=== PATIENT | female | born 1970 | race Caucasian/White ===

== ENCOUNTER → 2016-07-22 | Outpatient (CLI) | payer MEDICAID ==
--- NOTE | 2016-07-22 09:18 | MM ---
Reason for exam: additional evaluation requested from prior study. Last mammogram was performed 1 year and 6 months ago. History: Family history of breast cancer in mother at age 40 and breast cancer in grandmother. Benign US breast aspiration single RT of the right breast, December 11, 2013. Benign right breast aspiration of the right breast, April 19, 2013. Benign left US cyst aspiration of the left breast, July 02, 2008. Benign excisional biopsy of the left breast, May 2007. Took estrogen for 6 months. Physical Findings: Nurse did not find any significant physical abnormalities on exam. MG Diagnostic Mammo w CAD ANIBAL Bilateral CC and MLO view(s) were taken. Prior study comparison: February 04, 2015, right breast MG 3d work up w/cad RT. January 24, 2015, bilateral MG screening mammo w CAD. The breast tissue is heterogeneously dense. This may lower the sensitivity of mammography. No significant new findings when compared with previous films. These results were verbally communicated with the patient and result sheet given to the patient on 07/22/16. ASSESSMENT: Incomplete: need additional imaging evaluation, BI-RAD 0 RECOMMENDATION: Ultrasound of the right breast.
--- NOTE | 2016-07-22 09:37 | USB ---
Reason for exam: additional evaluation requested from abnormal screening. History: Family history of breast cancer in mother at age 40 and breast cancer in grandmother. Benign US breast aspiration single RT of the right breast, December 11, 2013. Benign right breast aspiration of the right breast, April 19, 2013. Benign left US cyst aspiration of the left breast, July 02, 2008. Benign excisional biopsy of the left breast, May 2007. Took estrogen for 6 months. US Breast RT Right breast ultrasound includes all four quadrants, the retroareolar region and axilla. Finding demonstrates a 1.1 x 1.0 x 0.9cm oval, mixed, hypoechoic lesion at 12 o'clock, a 1.1 x 0.9 x 0.5cm oval, mixed, hypoechoic lesion at 1 o'clock, a 0.5 x 0.6 x 0.2cm oval, hypoechoic lesion at 2 o'clock, a 0.5 x 0.4 x 0.3cm oval, cystic lesion at 7 o'clock, a 0.4 x 0.5 x 0.2cm oval, hypoechoic lesion at 8 o'clock, a 0.3 x 0.3 x 0.2cm oval lesion too small to characterize at 9 o'clock, a 0.3 x 0.4 x 0.3cm oval, hypoechoic lesion at 9 o'clock, a 0.7 x 0.6 x 0.5cm oval, mixed lesion at 10 o'clock, a 0.7 x 0.8 x 0.4cm oval, hypoechoic lesion at 10 o'clock, a 0.9 x 1.1 x 0.9cm irregular, hypoechoic lesion at 10 o'clock and a 1.0 x 0.8 x 0.4cm oval, hypoechoic lesion at 11 o'clock. These results were verbally communicated with the patient and result sheet given to the patient on 07/22/16. ASSESSMENT: Probably benign, BI-RAD 3 RECOMMENDATION: Ultrasound of the right breast in 6 months.
== END | disposition home or self-care (01) ==
LOC: RADMAMWWP 07:19
PROVIDERS: ATTEND Family Medicine
DX: R92.8 Other abnormal and inconclusive findings on diagnostic imaging of breast (principal)
CPT/HCPCS: 76641; G0204

== ENCOUNTER → 2018-12-11 | Outpatient (CLI) | payer MEDICAID ==
--- NOTE | 2018-12-11 12:07 | MR ---
EXAMINATION TYPE: MR cervical spine wo con DATE OF EXAM: 12/11/2018 7:50 AM COMPARISON: NONE HISTORY: Cervical disc degeneration, pain, tingling down both arms Multiplanar MultiSpin echo imaging of the cervical spine was performed. Comparison: none C2-C3: No evidence for degenerative disc disease. No disc bulge/herniation or protrusion. No Canal stenosis. Foramina are patent bilaterally. C3-C4: No evidence for degenerative disc disease. No disc bulge/herniation or protrusion. No Canal stenosis. Foramina are patent bilaterally. C4-C5: Mild disc desiccation. Circumferential disc bulge with mild effacement ventral thecal sac. No evidence for disc herniation or central stenosis. Mild bilateral neural foraminal encroachment. C5-C6: Moderate disc desiccation. Left paracentral disc bulge with mild effacement ventral thecal sac . No central stenosis. Mild bilateral foraminal encroachment. C6-C7: Mild disc desiccation. Circumferential disc bulge with mild effacement ventral thecal sac. No evidence for disc herniation or central stenosis. Mild bilateral neural foraminal encroachment. C7-T1: No evidence for degenerative disc disease. No disc bulge/herniation or protrusion. No Canal stenosis. Foramina are patent bilaterally. Cervical segments are intact. There is normal alignment. Cervical spinal cord is of normal signal. Craniovertebral junction relationships are within normal limits. IMPRESSION: 1. Disc desiccation with disc bulging as noted. Bilateral foraminal encroachment.
== END ==
LOC: RADMRIMAIN 07:10
PROVIDERS: ATTEND Family Medicine
DX: M50.221 Other cervical disc displacement at C4-C5 level (principal)
CPT/HCPCS: 72141

== ENCOUNTER → 2019-12-12 | Outpatient (CLI) | payer MEDICAID ==
[2019-12-12 11:54] LABS: Basophils % (A) 1 %; Eosinophils # (A) 0.1 k/uL (0-0.7); Eosinophils % (A) 2 %; HCT 40.4 % (34.0-46.0); HGB 12.9 gm/dL (11.4-16.0); Lymphocytes # (A) 0.6 k/uL (1.0-4.8); Lymphocytes % (A) 18 %; MCH 27.5 pg (25.0-35.0); MCV 85.7 fL (80.0-100.0); Mean Platelet Volume 6.8; Monocytes # (A) 0.3 k/uL (0-1.0); Monocytes % (A) 8 %; Neutrophils # (A) 2.2 k/uL (1.3-7.7); Neutrophils % (A) 70 %; Platelet Count 237 k/uL (150-450); RBC 4.71 m/uL (3.80-5.40); RDW 13.4 % (11.5-15.5); WBC 3.2 k/uL (3.8-10.6)
[2019-12-12 12:06] LABS: Appearance,Urine Cloudy (Clear); Bacteria,Urine Rare /hpf; Bilirubin,Urine Negative (Negative); Blood,Urine Negative (Negative); Color,Urine Yellow; Glucose,Urine (UA) Negative (Negative); Ketones,Urine Negative (Negative); Leukocyte Esterase,Urine Small (Negative); Mucus,Urine Rare /hpf; Nitrite,Urine Negative (Negative); Protein,Urine Trace (Negative); RBC,Urine 1 /hpf (0-5); Specific Gravity,Urine 1.024 (1.001-1.035); Squamous Epithelial Cell,Urine 12 /hpf (0-4); Urobilinogen,Urine <2.0 mg/dL (<2.0); WBC,Urine 1 /hpf (0-5)
[2019-12-12 21:15] LABS: Anti-Smith Ab Interp NEGATIVE (NEGATIVE); Cardiolipin Ab IgG Interp NEGATIVE (NEGATIVE); Cardiolipin Ab IgM Interp NEGATIVE (NEGATIVE); Cardiolipin IgA Antibody 1.1 U/mL; Cardiolipin IgM Antibody 2.7 U/mL; Cyclic Citrull Pep IgG Unit 7.4 U/mL; Cyclic Citrullinated Pep IgG POSITIVE (NEGATIVE); DNA Double-Stranded NEGATIVE (NEGATIVE); Scleroderma SC-70 Ab <0.2 AI
[2019-12-12 22:31] LABS: Protein, Total 6.8 g/dL (6.2-8.2)
[2019-12-12 23:19] LABS: Erythrocyte Sedimentation Rate 17 mm/Hr (0-20)
[2019-12-13 00:59] LABS: Hepatitis B Surface Antigen Non-Reactive (Non-Reactive); Hepatitis C IgG Antibody Non-Reactive (Non-Reactive)
[2019-12-13 07:06] LABS: ALT 15 U/L (8-44); AST 21 U/L (13-35); Albumin/Globulin Ratio 1.96 (1.60-3.17); Alkaline Phosphatase 82 U/L (41-126); BUN/Creat Ratio 15.56 Ratio (12.00-20.00); C Reactive Protein <0.4 mg/dL (0.0-0.8); Calcium 9.6 mg/dL (8.7-10.3); Carbon Dioxide 25.7 mmol/L (21.6-31.8); Chloride 106 mmol/L (96-109); Creatine Kinase 89 U/L (26-186); Globulin 2.3 g/dL (1.6-3.3); Glucose 80 mg/dL (70-110); Non-African American GFR(CKD) 75.1 (60.0-200.0); Potassium 4.6 mmol/L (3.5-5.5); Rheumatoid Factor, Qnt 9 IU/mL (0-15); Sodium 142 mmol/L (135-145); Total Bilirubin 0.3 mg/dL (0.3-1.2); Total Protein 6.8 g/dL (6.2-8.2); Uric Acid 4.7 mg/dL (2.9-7.7)
[2019-12-13 08:41] LABS: Angiotensin-1 Converting Enz. 10 U/L (8-52)
[2019-12-13 09:18] LABS: Free Kappa Lt Chain Qnt, Serum 1.56 mg/dL (0.33-1.94)
[2019-12-13 12:25] LABS: HLA B27 NEGATIVE
[2019-12-13 13:46] LABS: Vitamin D, 1, 25-Dihydroxy 41 pg/mL (20 - 79)
[2019-12-13 13:59] LABS: APTT 43 Sec(s) (<43); DRVVT 1:1 Mix 39 Sec(s) (<44); Dilute Russell Viper Venom 46 Sec(s) (<44)
[2019-12-13 14:09] LABS: C-ANCA <1:20 Titer (<1:20)
[2019-12-13 14:19] LABS: Albumin 4.15 g/dL (3.80-4.90); Gamma Globulin 1.17 g/dL (0.70-1.50)
[2019-12-14 11:26] LABS: ANA Pattern Speckled; ANA Pattern 2 Nucleolar
== END | disposition home or self-care (01) ==
LOC: LABWHC1 10:45
PROVIDERS: ATTEND Internal Medicine Rheumatology
DX: M35.00 Sjogren syndrome, unspecified (principal)
CPT/HCPCS: 36415; 80053; 81001; 82085; 82164; 82306; 82550; 82652; 83516; 83883; 84165; 84439; 84443; 84550; 85025; 85613; 85652; 85730; 86038; 86039; 86140; 86147; 86160; 86162; 86200; 86225; 86235; 86255; 86334; 86431; 86803; 86812; 87340

== ENCOUNTER → 2020-01-28 | Outpatient (CLI) | payer MEDICAID | END | disposition home or self-care (01) | LOC: LABWHC1 12:07 | PROVIDERS: ATTEND Nurse Practitioner Family | DX: Z20.828 Contact with and (suspected) exposure to other viral communicable diseases (principal) | CPT/HCPCS: U0003; C9803 ==

== ENCOUNTER → 2020-07-30 | Outpatient (CLI) | payer MEDICAID ==
--- NOTE | 2020-07-30 19:27 | XR ---
Result: Clinical History: Pain and swelling. Comparison: None available. Technique: AP, lateral and oblique views of the right ankle. AP, lateral and oblique views of the right foot. Findings: The bone mineralization is age-appropriate. Right ankle: There is no acute fracture or dislocation. The visualized osseous structures are in shawn tomic alignment. Scattered minimal degenerative changes with small dorsal talar osteophyte and plant ar spur seen. The talar dome is intact and the ankle mortise is congruent. Right foot: There is no acute fracture or dislocation. The visualized osseous structures are in dayanna omic alignment. The joint spaces are preserved. IMPRESSION: No acute osseous abnormality of the right ankle or foot.
== END | disposition home or self-care (01) ==
LOC: RADXRMAIN 18:35
PROVIDERS: ATTEND Family Medicine
DX: M25.571 Pain in right ankle and joints of right foot (principal); M79.671 Pain in right foot; M25.471 Effusion, right ankle; M79.89 Other specified soft tissue disorders

== ENCOUNTER → 2022-07-06 | Outpatient (CLI) | payer MEDICAID ==
--- NOTE | 2022-07-07 07:32 | MM ---
Reason for Exam: Screening (asymptomatic). Last mammogram was performed 5 year(s) and 11 month(s) ago. Patient History: Menarche at age 10. First Full-Term at age 16. Left ovary removed at age 25. Right ovary removed at age 25. Hysterectomy at age 25. Postmenopausal. Estrogen for 6 months. 05/2007, Benign Excisional Biopsy on the left side. 12/11/2013, Benign Cyst Aspiration on the right side. 04/19/2013, Benign Cyst Aspiration on the right side. 07/02/2008, Benign Cyst Aspiration on the left side. Maternal grandmother had breast cancer. Mother had breast cancer, age 40. Risk Values: Alexandra 5 year model risk: 2.5%. NCI Lifetime model risk: 19.6%. Prior Study Comparison: 06/19/2014 Right Diagnostic Mammogram, [facility]. 01/24/2015 Bilateral Screening Mammogram, [facility]. 02/04/2015 Right Diagnostic Mammogram, [facility]. 07/22/2016 Bilateral Diagnostic Mammogram, [facility]. Tissue Density: The breast tissue is heterogeneously dense. This may lower the sensitivity of mammography. Findings: Analyzed By CAD. Right breast biopsy clips. There is no suspicious group of microcalcifications or new suspicious mass in either breast. Overall Assessment: Negative, BI-RAD 1 Management: Screening Mammogram of both breasts in 1 year. A clinical breast exam by your physician is recommended on an annual basis and results should be correlated with mammographic findings. [facility] will attempt to contact patient to return for supplemental views and ultrasound if indicated. Electronically signed and approved by: Jani Lux DO
== END | disposition home or self-care (01) ==
LOC: RADMAMWWP 06:51
PROVIDERS: ATTEND Family Medicine
DX: Z12.31 Encounter for screening mammogram for malignant neoplasm of breast (principal); Z80.3 Family history of malignant neoplasm of breast; Z78.0 Asymptomatic menopausal state; Z98.890 Other specified postprocedural states
CPT/HCPCS: 77067

== ENCOUNTER 2022-08-20 11:51 | Emergency (ER) | payer MEDICAID ==
--- NOTE | 2022-08-20 12:40 | ED ---
General Adult HPI - General Chief complaint: Fall Stated complaint: Left wrist injury Time Seen by Provider: 08/20/22 12:07 Source: patient Mode of arrival: ambulatory Limitations: no limitations - History of Present Illness Initial comments: Dictation was produced using [employer] dictation software. please excuse any grammatical, word or spelling errors. Chief Complaint: 51-year-old female presents with left wrist injury History of Present Illness: Is a 51-year-old female she fell on outstretched hand. States that her wrist flexed backwards were her fingers touch to her posterior forearm. Patient widening of left wrist pain. Since that pain is severe. Denies any numbness or paresthesias to the fingers. The ROS documented in this emergency department record has been reviewed and confirmed by me. Those systems with pertinent positive or negative responses have been documented in the HPI. All other systems are other negative and/or noncontributory. - Related Data Home Medications Medication Instructions Recorded Confirmed Hydroxychloroquine Sulfate 200 mg PO BID 08/20/22 08/20/22 Pilocarpine [Salagen] 5 mg PO DAILY 08/20/22 08/20/22 valACYclovir HCL [Valtrex] 500 mg PO DAILY 08/20/22 08/20/22 Allergies Allergy/AdvReac Type Severity Reaction Status Date / Time codeine Allergy Severe Rapid Verified 08/20/22 14:15 Heart Rate Review of Systems ROS Statement: Those systems with pertinent positive or pertinent negative responses have been documented in the HPI. ROS Other: All systems not noted in ROS Statement are negative. Past Medical History Past Medical History: No Reported History History of Any Multi-Drug Resistant Organisms: None Reported Past Surgical History: Appendectomy, Breast Surgery, Hysterectomy Additional Past Surgical History / Comment(s): bilateral breast fibrotic cysts. Past Psychological History: No Psychological Hx Reported Smoking Status: Never smoker Past Alcohol Use History: None Reported Past Drug Use History: None Reported General Exam - General Exam Comments Initial Comments: PHYSICAL EXAM: General Impression: Alert and oriented x3, not in acute distress HEENT: Normocephalic atraumatic, extra-ocular movements intact, pupils equal and reactive to light bilaterally, mucous membranes moist. Cardiovascular: Heart regular rate and rhythm Chest: Able to complete full sentences, no retractions, no tachypnea Musculoskeletal: Pulses present and equal in all extremities, no peripheral edema Motor: no focal deficits noted Neurological: CN II-XII grossly intact, no focal motor or sensory deficits noted Skin: Intact with no visualized rashes Psych: Normal affect and mood Left upper extremity: Palpatory tenderness over the entire wrist, there does appear to be a step-off over the dorsal radius, not grossly angulated Limitations: no limitations Course Vital Signs 08/20/22 08/20/22 08/20/22 12:04 13:38 13:43 Temperature 98.2 F Pulse Rate 77 97 100 Respiratory 20 18 16 Rate Blood Pressure 119/78 128/98 154/88 O2 Sat by Pulse 99 98 100 Oximetry 08/20/22 08/20/22 13:48 14:03 Temperature Pulse Rate 102 H 96 Respiratory 20 20 Rate Blood Pressure 155/85 138/92 O2 Sat by Pulse 100 100 Oximetry Procedures - Orthopedic Fracture Reduction Fracture #1 Consent Obtained: verbal consent, written consent Side: left Fracture Reduction Location: radius Analgesia: procedural sedation Technique: direct manipulation Post Reduction X-rays Demonstrate: anatomical reduction Post-Reduction Neuro Exam: intact Post-Reduction Vascular Exam: intact Splint Applied: Yes Patient Tolerated Procedure: well - Procedural Sedation *Procedural Sedation Start Time: 13:38 *Procedural Sedation Stop Time: 13:46 *Indications: fracture/dislocation reduction *Previous Adverse Reaction to Anesthesia/Sedation?: No * Testing Complete?: No Reason Test Not Complete:: Emergent Situation *ASA Class: II *Mallampati Airway Score: 2 *Time of Last PO Intake: 08:00 Preparation: air sampling and monitoring applied, pulse oximeter, capnometry used, supplemental O2 applied Ketamine: IV Ketamine Dose: 50 Complications: none Interventions: oxygen applied Patient Tolerated Procedure: well Medical Decision Making - Medical Decision Making Was pt. sent in by a medical professional or institution (Dr. PA, [employer], urgent care, hospital, or fpc...) When possible be specific @ -No Did you speak to anyone other than the patient for history (EMS, parent, family, police, friend...)? What history was obtained from this source @ -No Did you review nursing and triage notes (agree or disagree)? Why? @ -I reviewed and agree with nursing and triage notes Were old charts reviewed (outside hosp., previous admission, EMS record, old EKG, old radiological studies, urgent care reports/EKG's, fpc records)? Report findings @ -No old charts were reviewed Differential Diagnosis (chest pain, altered mental status, abdominal pain women, abdominal pain men, vaginal bleeding, musculoskeletal, weakness, fever, dyspnea, syncope, headache, dizziness, GI bleed, back pain, seizure, CVA, palp atations, mental health)? @ -not applicable EKG interpreted by me (3pts min.). @ -None done X-rays interpreted by me (1pt min.). @ -Left distal radius fracture CT interpreted by me (1pt min.). @ -None done U/S interpreted by me (1pt. min.). @ -None done What testing was considered but not performed or refused? (CT, X-rays, U/S, labs)? Why? @ -None What meds were considered but not given or refused? Why? @ -None Did you discuss the management of the patient with other professionals (professionals i.e. , PA, [employer], lab, RT, psych nurse, medical social consultant, flying ii instructor, teacher, court registry officer, hospice case manager)? Give summary @ -No Was smoking cessation discussed for >3mins.? @ -No Was critical care preformed (if so, how long)? @ -No Were there social determinants of health that impacted care today? How? (Homelessness, low income, unemployed, alcoholism, drug addiction, transportation, low edu. Level, literacy, decrease access to med. care, detention, rehab)? @ -No Was there de-escalation of care discussed even if they declined (Discuss DNR or withdrawal of care, Hospice)? DNR status @ -No What co-morbidities impacted this encounter? (DM, HTN, Smoking, COPD, CAD, Cancer, CVA, ARF, Chemo, Hep., AIDS, mental health diagnosis, sleep apnea, morbid obesity)? @ -None Was patient admitted / discharged? Hospital course, mention meds given and route, prescriptions, significant lab abnormalities, going to OR and other pertinent info. @ -51-year-old female presents with left wrist fracture. Patient had received sedation for fracture reduction. Postreduction x-ray shows near anatomical reduction. Patient observed in emergency department after sedation. Patient discharged with outpatient referral to hand specialist Undiagnosed new problem with uncertain prognosis? @ -No Drug Therapy requiring intensive monitoring for toxicity (Heparin, Nitro, Insulin, Cardizem)? @ -No Were any procedures done? @ -See procedure note Diagnosis/symptom? Acute, or Chronic, or Acute on Chronic? Uncomplicated (without systemic symptoms) or Complicated (systemic symptoms)? @ -1. Left distal radius fracture Side effects of treatment? @ -No Exacerbation, Progression, or Severe Exacerbation? @ -No Poses a threat to life or bodily function? How? (Chest pain, USA, DC, pneumonia, PE, COPD, DKA, ARF, appy, cholecystitis, CVA, Diverticulitis, Homicidal, Suicidal, threat to staff... and all critical care pts) @ -yes Disposition Clinical Impression: Wrist fracture Disposition: HOME SELF-CARE Instructions (If sedation given, give patient instructions): Moderate Sedation (ED), Wrist Fracture in Adults (ED) Is patient prescribed a controlled substance at d/c from ED?: No Referrals: Eric Arellano DO [Doctor of Osteopathic Medicine] - 1-2 days Edda Stout DO [Doctor of Osteopathic Medicine] - 1-2 days Time of Disposition: 14:27
--- NOTE | 2022-08-20 12:43 | XR ---
Left wrist. HISTORY: Pain following trauma COMPARISON: None. TECHNIQUE: 4 views left wrist are obtained. There is a displaced apex volar angulation of the fracture of the distal left radial metaphysis. Left ulna is intact. The carpal bones and articulations are normal. There are no dislocations. IMPRESSION: Fracture of the left wrist as described above.
[2022-08-20] MEDS ORDERED: KETAMINE HCL IN 0.9 % NACL 50 MG/5 ML SYRINGE IV ONE (12:52)
--- NOTE | 2022-08-20 14:04 | XR ---
Left wrist: HISTORY: Reduction of left wrist fracture. COMPARISON: 08/20/2022. TECHNIQUE: 2 views left wrist are obtained post reduction. There appears to be near anatomic alignment. IMPRESSION: Near-anatomic alignment post reduction for left distal radial fracture.
[2022-08-20 14:19] VITALS: RESP 18
[2022-08-20 15:15] VITALS: BP 128/74; PULSE 92; TEMP 98.5
== END 2022-08-20 15:08 | disposition home or self-care (01) ==
LOC: EC 11:51
DX: S52.502A Unspecified fracture of the lower end of left radius, initial encounter for closed fracture (principal); Z88.5 Allergy status to narcotic agent; W19.XXXA Unspecified fall, initial encounter
CPT/HCPCS: 25605; 96374; 99283

== ENCOUNTER 2022-08-21 09:43 | Emergency (ER) | payer MEDICAID ==
[2022-08-21] MEDS ORDERED: ACETAMINOPHEN TAB 500 MG TAB PO STA (10:36)
[2022-08-21] MEDS ORDERED: KETOROLAC 15 MG/ML 1 ML VIAL IM STA (10:36)
--- NOTE | 2022-08-21 10:47 | ED ---
General Adult HPI - General Chief complaint: Extremity Injury, Upper Stated complaint: Broken wrist Time Seen by Provider: 08/21/22 10:20 Source: patient, RN notes reviewed, old records reviewed Mode of arrival: ambulatory Limitations: no limitations - History of Present Illness Initial comments: This is a 51-year-old female presents emergency Department complaining that the cast was placed yesterday was pushing on her biceps and causing the circulation be cut off. Patient comes in to have it redone. Patient has no other symptoms at this time. - Related Data Home Medications Medication Instructions Recorded Confirmed Hydroxychloroquine Sulfate 200 mg PO BID 08/20/22 08/20/22 Pilocarpine [Salagen] 5 mg PO DAILY 08/20/22 08/20/22 valACYclovir HCL [Valtrex] 500 mg PO DAILY 08/20/22 08/20/22 Allergies Allergy/AdvReac Type Severity Reaction Status Date / Time codeine Allergy Severe Rapid Verified 08/21/22 10:11 Heart Rate Review of Systems ROS Statement: Those systems with pertinent positive or pertinent negative responses have been documented in the HPI. ROS Other: All systems not noted in ROS Statement are negative. Past Medical History Past Medical History: No Reported History History of Any Multi-Drug Resistant Organisms: None Reported Past Surgical History: Appendectomy, Breast Surgery, Hysterectomy Additional Past Surgical History / Comment(s): bilateral breast fibrotic cysts. Past Psychological History: No Psychological Hx Reported Smoking Status: Never smoker Past Alcohol Use History: None Reported Past Drug Use History: None Reported General Exam - General Exam Comments Initial Comments: GENERAL Patient is well-developed and well-nourished. Patient is in mild distress. EYES Patient's pupils are equal and round. Extraocular motion is intact SKIN Unremarkable NEURO The patient is alert and oriented 3 PYSCH Patient has normal interpersonal interactions. MUSCULOSKELETAL The proximal portion of the cast was pushing her bicep causing her quite a bit of discomfort. Limitations: no limitations Course Vital Signs 08/21/22 10:08 Temperature 97.9 F Pulse Rate 98 Respiratory 0 L Rate Blood Pressure 134/83 O2 Sat by Pulse 95 Oximetry Procedures - Orthopedic Splinting/Casting Injury #1 Side: left Upper Extremity Injury Location: long arm, wrist Upper Extremity Immobilizer: sugar tong splint Medical Decision Making - Medical Decision Making Was pt. sent in by a medical professional or institution (, PA, CASH MANAGER, urgent care, hospital, or longterm...) When possible be specific @ -No Did you speak to anyone other than the patient for history (EMS, parent, family, police, friend...)? What history was obtained from this source @ -No Did you review nursing and triage notes (agree or disagree)? Why? @ -I reviewed and agree with nursing and triage notes Were old charts reviewed (outside hosp., previous admission, EMS record, old EKG, old radiological studies, urgent care reports/EKG's, longterm records)? Report findings @ -I reviewed x-rays and charts from yesterday Differential Diagnosis (chest pain, altered mental status, abdominal pain women, abdominal pain men, vaginal bleeding, weakness, fever, dyspnea, syncope, headache, dizziness, GI bleed, back pain, seizure, CVA, palpatations, mental health, musculoskeletal)? @ -Differential musculoskeletal EKG interpreted by me (3pts min.). @ -As above X-rays interpreted by me (1pt min.). @ -None done CT interpreted by me (1pt min.). @ -None done U/S interpreted by me (1pt. min.). @ -None done What testing was considered but not performed or refused? (CT, X-rays, U/S, labs)? Why? @ -None What meds were considered but not given or refused? Why? @ -None Did you discuss the management of the patient with other professionals (professionals i.e. , PA, CASH MANAGER, lab, RT, psych nurse, transition social worker, rn social work, teacher, learning and development officer, case managers)? Give summary @ -No Was smoking cessation discussed for >3mins.? @ -No Was critical care preformed (if so, how long)? @ -No Were there social determinants of health that impacted care today? How? (Homelessness, low income, unemployed, alcoholism, drug addiction, transportation, low edu. Level, literacy, decrease access to med. care, halfway, rehab)? @ -No Was there de-escalation of care discussed even if they declined (Discuss DNR or withdrawal of care, Hospice)? DNR status @ -No What co-morbidities impacted this encounter? (DM, HTN, Smoking, COPD, CAD, Cancer, CVA, ARF, Chemo, Hep., AIDS, mental health diagnosis, sleep apnea, morbid obesity)? @ -None Was patient admitted / discharged? Hospital course, mention meds given and route, prescriptions, significant lab abnormalities, going to OR and other pertinent info. @ -Original splint was removed and I replaced with a new splint and it's a sugar tong long arm splint. Undiagnosed new problem with uncertain prognosis? @ -No Drug Therapy requiring intensive monitoring for toxicity (Heparin, Nitro, Insulin, Cardizem)? @ -No Were any procedures done? @ -No Diagnosis/symptom? @ -Cast discomfort Acute, or Chronic, or Acute on Chronic? @ -Acute Uncomplicated (without systemic symptoms) or Complicated (systemic symptoms)? @ -Uncomplicated Side effects of treatment? @ -No Exacerbation, Progression, or Severe Exacerbation? @ -No Poses a threat to life or bodily function? How? (Chest pain, USA, MD, pneumonia, PE, COPD, DKA, ARF, appy, cholecystitis, CVA, Diverticulitis, Homicidal, Suicidal, threat to staff... and all critical care pts) @ -No Disposition Clinical Impression: Cast discomfort, Fx wrist Disposition: HOME SELF-CARE Instructions (If sedation given, give patient instructions): Wrist Fracture in Adults (ED) Is patient prescribed a controlled substance at d/c from ED?: No Referrals: Jeffery Simon DO [Primary Care Provider] - 1-2 days Time of Disposition: 10:44
[2022-08-21 10:57] VITALS: BP 135/86; PULSE 84; RESP 18; TEMP 98.2
== END 2022-08-21 11:01 | disposition home or self-care (01) ==
LOC: EC 09:43
DX: S62.91XA Unspecified fracture of right hand, initial encounter for closed fracture (principal); Z88.5 Allergy status to narcotic agent; X58.XXXA Exposure to other specified factors, initial encounter
CPT/HCPCS: 99283; 96372; 29105; J1885

== ENCOUNTER → 2023-07-13 | Outpatient (CLI) | payer BC ==
--- NOTE | 2023-07-14 08:57 | MM ---
Reason for Exam: Screening (asymptomatic). Last mammogram was performed 1 year(s) and 1 month(s) ago. Patient History: Menarche at age 10. First Full-Term at age 16. Left ovary removed at age 25. Hysterectomy at age 25. Postmenopausal. Estrogen for 6 months. 05/2007, Benign Excisional Biopsy on the left side. 12/11/2013, Benign Cyst Aspiration on the right side. 04/19/2013, Benign Cyst Aspiration on the right side. 07/02/2008, Benign Cyst Aspiration on the left side. Maternal grandmother had breast cancer. Maternal aunt had breast cancer at or over age 50. Mother had breast cancer, age 40. Risk Values: Alexandra 5 year model risk: 2.6%. NCI Lifetime model risk: 19.3%. Prior Study Comparison: 06/19/2014 Right Diagnostic Mammogram, [facility]. 02/04/2015 Right Diagnostic Mammogram, [facility]. 07/22/2016 Bilateral Diagnostic Mammogram, [facility]. 07/06/2022 Bilateral MG screening mammo w CAD, [facility]. Tissue Density: The breasts are heterogeneously dense, which may obscure small masses. Findings: Analyzed By CAD. Benign calcifications. Surgical clip right breast. Nodular area of density in the central lateral margin right breast for which spot compression view recommended. Overall Assessment: Incomplete: need additional imaging evaluation, BI-RAD 0 Management: Diagnostic Mammogram of the right breast. . Patient should continue monthly self-breast exams. A clinical breast exam by your physician is recommended on an annual basis. This exam should not preclude additional follow-up of suspicious palpable abnormalities. Note on Alexandra scores and lifetime risk: 1. A Alexandra score greater than 3% is considered moderate risk. If this is the case, consider specialist referral to assess eligibility for a risk reducing agent. 2. If overall lifetime risk for the development of breast cancer is 20% or higher, the patient may qualify for future screening with alternating mammogram and breast MRI. Electronically signed and approved by: Davy Crespo M.D. Radiologis
== END | disposition home or self-care (01) ==
LOC: RADMAMWWP 07:41
PROVIDERS: ATTEND Family Medicine
DX: Z12.31 Encounter for screening mammogram for malignant neoplasm of breast (principal); Z78.0 Asymptomatic menopausal state; Z80.3 Family history of malignant neoplasm of breast
CPT/HCPCS: 77067

== ENCOUNTER → 2023-07-15 | Outpatient (CLI) | payer BC ==
--- NOTE | 2023-07-15 08:11 | MM ---
Reason for Exam: Additional evaluation requested from abnormal screening. Last screening mammogram was performed less than 1 month ago. Patient History: Menarche at age 10. First Full-Term at age 16. Left ovary removed at age 25. Hysterectomy at age 25. Postmenopausal. Estrogen for 6 months. 05/2007, Benign Excisional Biopsy on the left side. 12/11/2013, Benign Cyst Aspiration on the right side. 04/19/2013, Benign Cyst Aspiration on the right side. 07/02/2008, Benign Cyst Aspiration on the left side. Maternal grandmother had breast cancer. Maternal aunt had breast cancer at or over age 50. Mother had breast cancer, age 40. Risk Values: Alexandra 5 year model risk: 2.6%. NCI Lifetime model risk: 19.3%. Tissue Density: Right: The breasts are heterogeneously dense, which may obscure small masses. Findings: Analyzed By CAD. Focal asymmetry 7 cm from nipple measuring 6 mm at middle depth posterior nipple line on both MLO and CC view. Overall Assessment: Incomplete: need additional imaging evaluation, BI-RAD 0 Management: Diagnostic Breast Ultrasound of the right breast. Results were given to the patient verbally at the time of exam. Patient should continue monthly self-breast exams. A clinical breast exam by your physician is recommended on an annual basis. This exam should not preclude additional follow-up of suspicious palpable abnormalities. Note on Alexandra scores and lifetime risk: 1. A Alexandra score greater than 3% is considered moderate risk. If this is the case, consider specialist referral to assess eligibility for a risk reducing agent. 2. If overall lifetime risk for the development of breast cancer is 20% or higher, the patient may qualify for future screening with alternating mammogram and breast MRI. Electronically signed and approved by: Jani Lux DO
--- NOTE | 2023-07-15 08:52 | USB ---
Reason for Exam: Additional evaluation requested from abnormal screening. Patient History: Menarche at age 10. First Full-Term at age 16. Left ovary removed at age 25. Hysterectomy at age 25. Postmenopausal. Estrogen for 6 months. 05/2007, Benign Excisional Biopsy on the left side. 12/11/2013, Benign Cyst Aspiration on the right side. 04/19/2013, Benign Cyst Aspiration on the right side. 07/02/2008, Benign Cyst Aspiration on the left side. Maternal grandmother had breast cancer. Maternal aunt had breast cancer at or over age 50. Mother had breast cancer, age 40. Risk Values: Alexandra 5 year model risk: 2.6%. NCI Lifetime model risk: 19.3%. Technique: Method: Targeted. Prior Study Comparison: 07/22/2016 Bilateral Diagnostic Mammogram, [facility]. 07/06/2022 Bilateral MG screening mammo w CAD, [facility]. 07/13/2023 Bilateral MG screening mammo w CAD, [facility]. Findings: The upper outer quadrant of the right breast, the axilla of the right breast and the retroareolar of the right breast were scanned. Technique utilized:US breast workup limited RT Image; Ultrasound imaging of: Area of concern, retroareolar region and axilla. * Clustered cystic necrotic 7 cm from nipple measuring up to 5 mm. * Hypoechoic lesion at 9:00 2 cm from nipple measuring up to 5 mm. Biopsy of this lesion is recommended. * Simple appearing cyst at 10:00 3 cm from nipple measuring 5 mm. Overall Assessment: Suspicious, BI-RAD 4 Management: Ultrasound Core Biopsy of the right breast. A clinical breast exam by your physician is recommended on an annual basis and results should be correlated with mammographic findings. This exam should not preclude additional follow-up of suspicious palpable abnormalities. Results were given to the patient verbally at the time of exam. Electronically signed and approved by: Jani Lux DO
== END | disposition home or self-care (01) ==
LOC: RADMAMWWP 07:26
PROVIDERS: ATTEND Family Medicine
DX: N60.01 Solitary cyst of right breast (principal); R92.331 Mammographic heterogeneous density, right breast; Z80.3 Family history of malignant neoplasm of breast; Z78.0 Asymptomatic menopausal state
CPT/HCPCS: 77061; 77065

== ENCOUNTER → 2023-07-20 | Day surgery (SDC) | payer BC ==
--- NOTE | 2023-07-26 09:07 | MM ---
Reason for Exam: Post Procedure Mammogram. Last screening mammogram was performed less than 1 month ago. Patient History: Menarche at age 10. First Full-Term at age 16. Left ovary removed at age 25. Hysterectomy at age 25. Postmenopausal. Estrogen for 6 months. 05/2007, Benign Excisional Biopsy on the left side. 12/11/2013, Benign Cyst Aspiration on the right side. 04/19/2013, Benign Cyst Aspiration on the right side. 07/02/2008, Benign Cyst Aspiration on the left side. Maternal grandmother had breast cancer. Maternal aunt had breast cancer at or over age 50. Mother had breast cancer, age 40. Risk Values: Alexandra 5 year model risk: 2.6%. NCI Lifetime model risk: 19.3%. Prior Study Comparison: 06/19/2014 Right Diagnostic Mammogram, [facility]. 01/24/2015 Bilateral Screening Mammogram, [facility]. 02/04/2015 Right Diagnostic Mammogram, [facility]. 07/22/2016 Bilateral Diagnostic Mammogram, [facility]. 07/06/2022 Bilateral MG screening mammo w CAD, [facility]. 07/13/2023 Bilateral MG screening mammo w CAD, [facility]. 07/15/2023 Right MG 3D work up w/cad RT, [facility]. Tissue Density: Right: The breasts are heterogeneously dense, which may obscure small masses. Pathology Description: Location: 9 o'clock. Marker Left Behind. Needle Type: Mammotome Cores: 4 Gauge: 13 The procedure of ultrasound guided core biopsy was explained to the patient. Benefits, alternatives, and risks were discussed. An informed consent was then obtained. The small 6 mm lesion at the 9:00 position, 2 cm from the nipple is identified and targeted for biopsy. The patient was placed in supine positioning for imaging and for the procedure. The overlying skin was prepped and draped in usual sterile fashion. Lidocaine was used as anesthetic into the skin and subcutaneous tissue up to area of concern in the right breast. Under ultrasound guidance, a 13-gauge vacuum-assisted mammotome Elite biopsy gun device was used to obtain 4 core samples. The area appeared to collapse at the first pass suggesting a possible tiny debris filled cyst. Following this, a coil clip was left in lesion. The patient tolerated the procedure well without any immediate complication. The patient was kept in the radiology department for short stay after the procedure and then discharged home in stable condition. Postprocedure mammogram: The patient was transferred to mammography for physician ordered post procedure mammogram for clip placement verification. Post procedure mammogram shows the clip lateral to the area of interest. Discordant with the original mammographic finding. As no other suspicious area is identified by ultrasound, 3 month follow-up diagnostic mammograms recommended. IMPRESSION: Uncomplicated ultrasound guided core biopsy of 6 mm nodule 9:00 right breast. This appeared to collapse at the first pass which would favor a tiny benign cyst. On postbiopsy mammogram, we note that the position of the coil clip is discordant with the originally detected mammographic finding. If benign results, 3 month follow-up diagnostic right breast mammogram will be recommended. Full pathology results to follow. Pathology Results: Result: Benign, Fibrocystic change. Pathology and radiology were reviewed. Findings are discordant. RIGHT BREAST, NINE O'CLOCK, ULTRASOUND GUIDED NEEDLE CORE BIOPSY: Benign breast with fibrocystic changes including stromal fibrosis and focal scar with histiocytes. Rare microcalcifications are identified. Overall Assessment: Benign Assessment: MG diagnostic mammo RT wo CAD - Right: Probably benign, BI-RAD 3. Management: Diagnostic Mammogram of the right breast in 3 months. 3 month follow up right breast mammogram. Clip after ultrasound biopsy not at the site of mammographic finding. Electronically signed and approved by: Shameka Patterson M.D. Radiologist
== END ==
LOC: RADUSWWP 11:54
PROVIDERS: ATTEND Surgery
DX: N60.31 Fibrosclerosis of right breast (principal)
CPT/HCPCS: 88305; 77065; 19083; A4648

== ENCOUNTER → 2023-07-29 | Outpatient (CLI) | payer BC ==
--- NOTE | 2023-07-29 11:13 | P.GSCN ---
History of Present Illness Consult date: 07/29/23 Reason for Consult: abnormal right breast mammogram Requesting physician: Jeffery Simon History of present illness: Mai is a 52-year-old female seen in consultation for Dr. Simon regarding a radiographic abnormality in the right breast. She underwent a bilateral screening mammogram on 07-13-2023. Nothing of concern was seen in the left breast. This revealed a nodular area of density in the central lateral right breast for which spot compression views were recommended. A diagnostic right breast mammogram as well as a right breast ultrasound were performed on 07-15-2023. These revealed at the 2 o'clock position 2 cm from the nipple measuring up to 5 mm hypoechoic lesion. Biopsy of this lesion was recommended. The mammogram revealed a focal asymmetry 7 cm from the nipple measuring 6 mm at a middle depth. An ultrasound-guided core biopsy was performed on 07-20-2023. The results were benign breast tissue with fibrocystic changes including stromal fibrosis and focal scar with histiocytes. Rare microcalcifications were identified. This was felt to be benign. The concern however was that the clip after ultrasound biopsy was not at the site of the mammographic finding. Therefore 3-month follow-up right breast mammogram was recommended. The patient does not feel any new lumps masses or nodules of concern in either breast. She is not complaining of any skin changes or nipple discharge from either breast. She has not had any recent trauma or infection in the breast. The patient has had a left breast open biopsy in approximately 2006. She has had multiple bilateral cyst aspirations in the past. Alexandra Risk: 5 year: 2.6% lifetime risk: 19.3% Caffiene: none nicotine: none chocolate: none BCP: used for about 25 years started at 10, had a hysterectomy at 25 fiborid took one ovary hormones: none Family History: mother: breast cancer; in her 30's from heart disease maternal grandmother: breast cancer in her 40's maternal cousin: breast cancer with mets; dx in her 50's maternal aunt: leukemia maternal cousins: spider cancer; cancer of bone maternal cousin: larynx cancer Hormonal History: menarche: 9 M1, age at first live : 16, breast fed: no hysterectomy at 25, left one ovary hormones: none Surgical history: Left breast biopsy Hysterectomy 1 ovary removed Appendectomy left wrist fracture Medical history: sograns syndrome autoimmune GERD Social HIstory: nicotine: none alcohol: none drugs: none Review of Systems - Constitutional Denies fever, Denies weight loss - EENT Eyes: denies blurred vision Ears: deny: decreased hearing, tinnitus Ears, nose, mouth and throat: Denies dysphagia - Breasts bilateral: as per HPI - Cardiovascular Denies chest pain, Denies shortness of breath - Respiratory Denies cough, Denies 7 - Gastrointestinal Reports as per HPI - Genitourinary Genitourinary: Denies dysuria, Denies hematuria Menstruation: Reports post hysterectomy - Musculoskeletal Reports as per HPI - Integumentary Denies rash, Denies unusual bruising - Neurological Denies headaches, Denies syncope - Psychiatric Reports as per HPI - Endocrine Reports as per HPI - Hematologic/Lymphatic Reports as per HPI - Allergic/Immunologic Reports seasonal allergies Past Medical History Past Medical History: No Reported History Additional Past Medical History / Comment(s): sjogrens syndrome History of Any Multi-Drug Resistant Organisms: None Reported Past Surgical History: Appendectomy, Breast Surgery, Hysterectomy Additional Past Surgical History / Comment(s): bilateral breast fibrotic cysts. Past Anesthesia/Blood Transfusion Reactions: No Reported Reaction Past Psychological History: No Psychological Hx Reported Smoking Status: Never smoker Past Alcohol Use History: None Reported Past Drug Use History: None Reported Medications and Allergies Home Medications Medication Instructions Recorded Confirmed Type Hydroxychloroquine Sulfate 200 mg PO BID 08/20/22 07/15/23 History Pilocarpine [Salagen] 5 mg PO DAILY 08/20/22 07/15/23 History valACYclovir HCL [Valtrex] 500 mg PO DAILY 08/20/22 07/15/23 History L.acidoph,Paracasei, B.lactis 1 each PO DAILY 07/15/23 07/15/23 History [Probiotic] Allergies Allergy/AdvReac Type Severity Reaction Status Date / Time codeine Allergy Severe Rapid Verified 07/15/23 14:35 Heart Rate Surgical - Exam - General no distress - Eyes normal ocular movement - ENT no hearing loss - Neck trachea midline - Respiratory normal respiratory effort, clear to auscultation - Cardiovascular Rhythm: regular Heart Sounds: normal: S1, S2 - Abdomen Abdomen: soft, non tender, no guarding, no rigid, no rebound - Integumentary normal turgor - Neurologic no disoriented, no combative - Musculoskeletal normal gait - Psychiatric oriented to time, oriented to person, oriented to place, speech is normal, memory intact Breast Exam: BRA: 42D Inspection: Bilateral grade 2 ptosis Palpation: Right breast: Ecchymosis from recent core biopsy, no evidence of hematoma or infection, multi positional exam fibrocystic changes Right axilla: No adenopathy of concern Left breast: Well-healed scar from prior surgery, multi positional exam no dominant masses or nodules of concern, tenderness upper outer quadrant Left axilla: No adenopathy of concern Results Mammogram and ultrasound will be personally reviewed with the radiologist, at this time it is felt that the core biopsy of the right breast did not correspond to the radiographic abnormality and repeat right breast mammogram in 3 months is recommended Assessment and Plan Assessment: Impression: Family history of breast cancer Increased risk breast cancer Alexandra 5-year model risk 2.6% NCI lifetime risk 19.3% Ultrasound core biopsy right breast question if this is can concordant with the area of concern on recent mammogram of the right breast Fibrocystic breast changes Plan: Genetic testing We discussed chemoprophylaxis secondary to her Alexandra 5-year model risk of 2.6% and at this time she would like to hold off on that High lifetime risk of breast cancer 19.3% recommend alternating MRI/mammogram every 6 months Bilateral breast MRI in January with examination at that time Will review radiographs with Dr. Patterson regarding the need for further tissue acquisition of the right breast versus repeat right breast mammogram in 3 months with examination at that time CC: Dr. Simon
[2023-07-29 11:29] VITALS: BP 128/87; PULSE 84; RESP 17; TEMP 98.3
== END ==
LOC: WWCWWP 10:38
PROVIDERS: ATTEND Surgery
DX: R92.8 Other abnormal and inconclusive findings on diagnostic imaging of breast (principal); N63.10 Unspecified lump in the right breast, unspecified quadrant; N64.89 Other specified disorders of breast; N60.11 Diffuse cystic mastopathy of right breast; Z80.3 Family history of malignant neoplasm of breast; Z88.5 Allergy status to narcotic agent

== ENCOUNTER → 2023-12-02 | Outpatient (CLI) | payer BC ==
--- NOTE | 2023-12-02 08:16 | MM ---
Reason for Exam: Follow-up at short interval from prior study. Last screening mammogram was performed 4 month(s) ago. Patient History: Menarche at age 10. First Full-Term at age 16. Left ovary removed at age 25. Hysterectomy at age 25. Postmenopausal. Estrogen for 6 months. 07/20/2023, Benign US biopsy breast VAD RT on the right side. 05/2007, Benign Excisional Biopsy on the left side. 12/11/2013, Benign Cyst Aspiration on the right side. 04/19/2013, Benign Cyst Aspiration on the right side. 07/02/2008, Benign Cyst Aspiration on the left side. Maternal grandmother had breast cancer. Maternal aunt had breast cancer at or over age 50. Mother had breast cancer, age 40. Risk Values: Alexandra 5 year model risk: 3.4%. NCI Lifetime model risk: 23.8%. Prior Study Comparison: 07/13/2023 Bilateral MG screening mammo w CAD, [facility]. 07/15/2023 Right MG 3D work up w/cad RT, [facility]. 07/20/2023 Right MG diagnostic mammo RT wo CAD, [facility]. Tissue Density: Right: There are scattered areas of fibroglandular density. Findings: Analyzed By CAD. Pattern appears stable Subtle distortion within the mid right craniocaudal projection was present on the craniocaudal view, this appears to disperse somewhat craniocaudal compression. Consider additional evaluation with MRI. Ultrasound can be performed. Consider evaluating this with the amendable to stereotactic core biopsy. Images were reviewed with the surgeon and the case discussed. Overall Assessment: Incomplete: need additional imaging evaluation, BI-RAD 0 Management: Diagnostic Breast Ultrasound of the right breast. A negative mammogram report should not preclude additional follow up of suspicious palpable abnormalities. Patient should continue monthly self breast exam. A clinical breast exam by your physician is recommended on an annual basis and results should be correlated with mammographic findings. Note on Alexandra scores and lifetime risk: 1. A Alexandra score greater than 3% is considered moderate risk. If this is the case, consider specialist referral to assess eligibility for a risk reducing agent. 2. If overall lifetime risk for the development of breast cancer is 20% or higher, the patient may qualify for future screening with alternating mammogram and breast MRI. [facility], , 12/02/2023 8:13 AM. Electronically signed and approved by: Dakota Boswell D.O. Radiologis
== END | disposition home or self-care (01) ==
LOC: RADMAMWWP 07:31
PROVIDERS: ATTEND Surgery
DX: N63.0 Unspecified lump in unspecified breast
CPT/HCPCS: 77061; 77065

== ENCOUNTER → 2023-12-07 | Outpatient (CLI) | payer BC ==
--- NOTE | 2023-12-07 09:20 | USB ---
Reason for Exam: Follow-up at short interval from prior study. Patient History: Menarche at age 10. First Full-Term at age 16. Left ovary removed at age 25. Hysterectomy at age 25. Postmenopausal. Estrogen for 6 months. 07/20/2023, Benign US biopsy breast VAD RT on the right side. 05/2007, Benign Excisional Biopsy on the left side. 12/11/2013, Benign Cyst Aspiration on the right side. 04/19/2013, Benign Cyst Aspiration on the right side. 07/02/2008, Benign Cyst Aspiration on the left side. Maternal grandmother had breast cancer. Maternal aunt had breast cancer at or over age 50. Mother had breast cancer, age 40. Risk Values: Alexandra 5 year model risk: 3.4%. NCI Lifetime model risk: 23.8%. Technique: Method: Targeted. Prior Study Comparison: 07/15/2023 Right MG 3D work up w/cad RT, [facility]. 07/20/2023 Right MG diagnostic mammo RT wo CAD, [facility]. 12/02/2023 Right MG 3D diag mammo w/cad RT, [facility]. Findings: The upper outer quadrant of the right breast, the axilla of the right breast and the retroareolar of the right breast were scanned. No solid or cystic masses are identified.. Patient can follow up with her scheduled MRI for additional evaluation mammographic finding. Overall Assessment: Negative, BI-RAD 1 Management: Diagnostic Breast MRI of both breasts. A clinical breast exam by your physician is recommended on an annual basis and results should be correlated with mammographic findings. This exam should not preclude additional follow-up of suspicious palpable abnormalities. Results were given to the patient verbally at the time of exam. [facility], , 12/07/2023 9:17 AM. Electronically signed and approved by: Dakota Boswell D.O. Radiologis
== END | disposition home or self-care (01) ==
LOC: RADUSWWP 08:46
PROVIDERS: ATTEND Surgery

== ENCOUNTER → 2023-12-15 | Outpatient (CLI) | payer BC ==
[2023-12-15 15:41] VITALS: BP 130/78; PULSE 81; RESP 17; TEMP 98.3
--- NOTE | 2023-12-15 16:13 | P.PN ---
Subjective Progress Note Date: 12/15/23 Principal diagnosis: high risk breast cancer 12-15-23 Reason for Consult: abnormal right breast mammogram Requesting physician: Jeffery Simon History of present illness: Mia is a 52-year-old female seen in consultation for Dr. Simon on 07-29-23 regarding a radiographic abnormality in the right breast. She underwent a bilateral screening mammogram on 07-13-2023. Nothing of concern was seen in the left breast. This revealed a nodular area of density in the central lateral right breast for which spot compression views were recommended. A diagnostic right breast mammogram as well as a right breast ultrasound were performed on 07-15-2023. These revealed at the 2 o'clock position 2 cm from the nipple measuring up to 5 mm hypoechoic lesion. Biopsy of this lesion was recommended. The mammogram revealed a focal asymmetry 7 cm from the nipple measuring 6 mm at a middle depth. An ultrasound-guided core biopsy was performed on 07-20-2023. The results were benign breast tissue with fibrocystic changes including stromal fibrosis and focal scar with histiocytes. Rare microcalcifications were identified. This was felt to be benign. The concern however was that the clip after ultrasound biopsy was not at the site of the mammographic finding. Therefore 3-month follow-up right breast mammogram was recommended. The patient did not feel any new lumps masses or nodules of concern in either breast. She was not complaining of any skin changes or nipple discharge from either breast. She had not had any recent trauma or infection in the breast. The patient had had a left breast open biopsy in approximately 2006. She has had multiple bilateral cyst aspirations in the past. She underwent a right breast mammogram on 12-02-23 which showed a subtle distortion in this area. This was personally reviewed with the radiologist and consideration of s stero biopsy was discussed, but it was felt this would be hard to localize. An ultrasound of this site was done on 12-07-23. This was felt to be (-) but an MRI was recommended. The patient does not feel any new lumps masses or nodules for which she has any concern. Genetic testing August 31, (-) Alexandra Risk: 5 year: 3.4% lifetime risk: 23.8 % Caffiene: none nicotine: none chocolate: none BCP: used for about 25 years started at 10, had a hysterectomy at 25 fiborid took one ovary hormones: none Family History: mother: breast cancer; in her 30's from heart disease maternal grandmother: breast cancer in her 40's maternal cousin: breast cancer with mets; dx in her 50's maternal aunt: leukemia maternal cousins: spider cancer; cancer of bone maternal cousin: larynx cancer Hormonal History: menarche: 9 M1, age at first live : 16, breast fed: no hysterectomy at 25, left one ovary hormones: none Surgical history: Left breast biopsy Hysterectomy 1 ovary removed Appendectomy left wrist fracture Medical history: sograns syndrome autoimmune GERD Social HIstory: nicotine: none alcohol: none drugs: none Review of Systems - Constitutional Denies fever, Denies weight loss - EENT Eyes: denies blurred vision Ears: deny: decreased hearing, tinnitus Ears, nose, mouth and throat: Denies dysphagia - Breasts bilateral: as per HPI - Cardiovascular Denies chest pain, Denies shortness of breath - Respiratory Denies cough - Gastrointestinal Reports as per HPI - Genitourinary Genitourinary: Denies dysuria, Denies hematuria Menstruation: Reports post hysterectomy - Musculoskeletal Reports as per HPI - Integumentary Denies rash, Denies unusual bruising - Neurological Denies headaches, Denies syncope - Psychiatric Reports as per HPI - Endocrine Reports as per HPI - Hematologic/Lymphatic Reports as per HPI - Allergic/Immunologic Reports seasonal allergies Past Medical History Past Medical History: No Reported History Additional Past Medical History / Comment(s): sjogrens syndrome History of Any Multi-Drug Resistant Organisms: None Reported Past Surgical History: Appendectomy, Breast Surgery, Hysterectomy Additional Past Surgical History / Comment(s): bilateral breast fibrotic cysts. Past Anesthesia/Blood Transfusion Reactions: No Reported Reaction Past Psychological History: No Psychological Hx Reported Smoking Status: Never smoker Past Alcohol Use History: None Reported Past Drug Use History: None Reported Medications and Allergies Home Medications Medication Instructions Recorded Confirmed Type Hydroxychloroquine Sulfate 200 mg PO BID 08/20/22 07/15/23 History Pilocarpine [Salagen] 5 mg PO DAILY 08/20/22 07/15/23 History valACYclovir HCL [Valtrex] 500 mg PO DAILY 08/20/22 07/15/23 History L.acidoph,Paracasei, B.lactis 1 each PO DAILY 07/15/23 07/15/23 History [Probiotic] Allergies Allergy/AdvReac Type Severity Reaction Status Date / Time codeine Allergy Severe Rapid Verified 07/15/23 14:35 Heart Rate Objective - Vital Signs Vital signs: Vital Signs Temp 98.3 F 12/15/23 15:39 Pulse 81 12/15/23 15:39 Resp 17 12/15/23 15:39 BP 130/78 12/15/23 15:39 Pulse Ox 95 12/15/23 15:39 FiO2 Intake & Output 12/14/23 12/15/23 12/15/23 18:59 06:59 18:59 Weight 86.183 kg - Constitutional General appearance: Present: cooperative - EENT Eyes: Present: EOMI ENT: Present: hearing grossly normal - Neck Neck: Present: normal ROM - Respiratory Respiratory: bilateral: CTA - Cardiovascular Rhythm: regular Heart sounds: normal: S1, S2 - Integumentary Integumentary: Present: normal turgor - Musculoskeletal Musculoskeletal: Present: gait normal - Psychiatric Psychiatric: Present: A&O x's 3, appropriate affect, intact judgment & insight - Additional findings Additional findings: Breast Exam: BRA: 42D Inspection: Bilateral grade 2 ptosis Palpation: Right breast: multi positional exam fibrocystic changes Right axilla: No adenopathy of concern Left breast: Well-healed scar from prior surgery, multi positional exam no dominant masses or nodules of concern, tenderness upper outer quadrant Left axilla: No adenopathy of concern Assessment and Plan Assessment: Impression: Family history of breast cancer Increased risk breast cancer Alexandra 5-year model risk 3.4% NCI lifetime risk 23.8; we have discussed chemoprophylaxis and at this time the patient has decl ined Ultrasound core biopsy right breast question if this was concordant with the area of concern on mammogram of the right breast Fibrocystic breast changes Patient's lifetime risk exceeds 20% and she should be a good candidate for breast MRI Plan: Genetic testing and negative We discussed chemoprophylaxis secondary to her Alexandra 5-year model risk of 3.4% and at this time she would like to hold off on that High lifetime risk of breast cancer 23.8% recommend alternating MRI/mammogram every 6 months Bilateral breast MRI in January with examination at that time After discussion with the patient we will attempt a stereo biopsy of the right breast, if the lesion cannot be seen we will further evaluate with an MRI; CC: Dr. Simon
== END ==
LOC: WWCWWP 14:56
PROVIDERS: ATTEND Surgery
DX: R92.8 Other abnormal and inconclusive findings on diagnostic imaging of breast (principal); N64.89 Other specified disorders of breast; N60.11 Diffuse cystic mastopathy of right breast; Z80.3 Family history of malignant neoplasm of breast; Z88.5 Allergy status to narcotic agent

== ENCOUNTER → 2023-12-30 | Day surgery (SDC) | payer BC ==
[~2023-12-30] MED LIST: ALPRAZolam 0.25 MG TAB PO PRN; ALPRAZolam 0.5 MG TAB PO PRN
--- NOTE | 2023-12-30 08:32 | P.PCN ---
Date of Procedure: 12/30/23 Preoperative Diagnosis: Mammographic abnormality right breast/density Postoperative Diagnosis: Same Procedure(s) Performed: Right breast stereotactic core biopsy Anesthesia: local Surgeon: Elena Gant Pathology: other (breast tissue) Condition: stable Disposition: same day Indications for Procedure: Mammographic density right breast recommended for stereotactic core biopsy after review with radiology this is only seen in the cc view Operative Findings: Fibrofatty breast tissue with some denser breast tissue present as well specimens Description of Procedure: Mia was taken to the stereotactic core biopsy room. A CC from above ap proach was utilized and a technical program manager film was obtained. The area of nodular density was identified. This was in proximity to several vessels. The area of concern on the mammogram was felt to be identified and this was targeted. The breast was prepped using chlorhexidine. 20 cc of 1% lidocaine were used to anesthetize the area of the biopsy. A 9 gauge vacuum-assisted core rotating biopsy needle was driven to the correct coordinates. A prefire film was obtained. The needle was noted to be in the correct location. The needle was fired. A post fire film was obtained and the needle was noted to be in the correct location. 12 core biopsy specimens were obtained. Secondary to the fact that this was a density and no calcifications were present radiograph of the specimen was not performed. Secure jean paul Top-Hat clip was deployed. The clip appeared to be in the correct location. The patient will follow-up with Dr. Sanchez in 1 week. The specimen is sent to pathology. A postprocedure radiograph will be obtained. The patient tolerated the procedure in stable condition.
[2023-12-30 08:53] VITALS: BP 126/80; PULSE 77; RESP 77; TEMP 98.1
--- NOTE | 2024-01-02 09:16 | MM ---
Date of Procedure: 12/30/23 Preoperative Diagnosis: Mammographic abnormality right breast/density Postoperative Diagnosis: Same Procedure(s) Performed: Right breast stereotactic core biopsy Anesthesia: local Surgeon: Elena Gant Pathology: other (breast tissue) Condition: stable Disposition: same day Indications for Procedure: Mammographic density right breast recommended for stereotactic core biopsy after review with radiology this is only seen in the cc view Operative Findings: Fibrofatty breast tissue with some denser breast tissue present as well specimens Description of Procedure: Mia was taken to the stereotactic core biopsy room. A CC from above approach was utilized and a town planner film was obtained. The area of nodular density was identified. This was in proximity to several vessels. The area of concern on the mammogram was felt to be identified and this was targeted. The breast was prepped using chlorhexidine. 20 cc of 1% lidocaine were used to anesthetize the area of the biopsy. A 9 gauge vacuum-assisted core rotating biopsy needle was driven to the correct coordinates. A prefire film was obtained. The needle was noted to be in the correct location. The needle was fired. A post fire film was obtained and the needle was noted to be in the correct location. 12 core biopsy specimens were obtained. Secondary to the fact that this was a density and no calcifications were present radiograph of the specimen was not performed. Secure jean paul Top-Hat clip was deployed. The clip appeared to be in the correct location. The patient will follow-up with Dr. Sanchez in 1 week. The specimen is sent to pathology. A postprocedure radiograph will be obtained. The patient tolerated the procedure in stable condition. BRIANNE
== END ==
LOC: RADMAMWWP 07:32
PROVIDERS: ATTEND Surgery
DX: N60.91 Unspecified benign mammary dysplasia of right breast (principal)
CPT/HCPCS: 88305; 88341

== ENCOUNTER → 2024-01-20 | Outpatient (CLI) | payer BC ==
[2024-01-20 14:33] VITALS: BP 150/81; PULSE 81; RESP 17; TEMP 98.4
--- NOTE | 2024-01-20 14:56 | P.PN ---
Subjective Progress Note Date: 01/20/24 Principal diagnosis: atypical ductal hyperlasia abnormal right breast mammogram Requesting physician: Jeffery Simon History of present illness: Mia is a 52-year-old female seen in consultation for Dr. Simon on 07-29-23 regarding a radiographic abnormality in the right breast. She underwent a bilateral screening mammogram on 07-13-2023. Nothing of concern was seen in the left breast. This revealed a nodular area of density in the central lateral right breast for which spot compression views were recommended. A diagnostic right breast mammogram as well as a right breast ultrasound were performed on 07-15-2023. These revealed at the 2 o'clock position 2 cm from the nipple measuring up to 5 mm hypoechoic lesion. Biopsy of this lesion was recommended. The mammogram revealed a focal asymmetry 7 cm from the nipple measuring 6 mm at a middle depth. An ultrasound-guided core biopsy was performed on 07-20-2023. The results were benign breast tissue with fibrocystic changes including stromal fibrosis and focal scar with histiocytes. Rare microcalcifications were identified. This was felt to be benign. The concern however was that the clip after ultrasound biopsy was not at the site of the mammographic finding. Therefore 3-month follow-up right breast mammogram was recommended. The patient did not feel any new lumps masses or nodules of concern in either breast. She was not complaining of any skin changes or nipple discharge from either breast. She had not had any recent trauma or infection in the breast. The patient had had a left breast open biopsy in approximately 2006. She has had multiple bilateral cyst aspirations in the past. She underwent a right breast mammogram on 12-02-23 which showed a subtle distortion in this area. This was personally reviewed with the radiologist and c onsideration of s stero biopsy was discussed, but it was felt this would be hard to localize. An ultrasound of this site was done on 12-07-23. This was felt to be (-) but an MRI was recommended. The patient does not feel any new lumps masses or nodules for which she has any concern. Genetic testing August 31, (-) stero biopsy of the right breast on 12-30-23 atypical ductal hyperplasia; the radiographs were personally reviewed with the radiologist Dr. Boswell. The clip marking this area is a Top-Hat clip and appears to be in the correct location. The recommendation is to take at least 1 cm of tissue around the tip of the clip however. Alexandra Risk: 5 year: 3.4% lifetime risk: 23.8 % Caffiene: none nicotine: none chocolate: none BCP: used for about 25 years started at 10, had a hysterectomy at 25 fiborid took one ovary hormones: none Family History: mother: breast cancer; in her 30's from heart disease maternal grandmother: breast cancer in her 40's maternal cousin: breast cancer with mets; dx in her 50's maternal aunt: leukemia maternal cousins: spider cancer; cancer of bone maternal cousin: larynx cancer Hormonal History: menarche: 9 M1, age at first live : 16, breast fed: no hysterectomy at 25, left one ovary hormones: none Surgical history: Left breast biopsy Hysterectomy 1 ovary removed Appendectomy left wrist fracture Medical history: sograns syndrome autoimmune GERD Social HIstory: nicotine: none alcohol: none drugs: none Review of Systems - Constitutional Denies fever, Denies weight loss - EENT Eyes: denies blurred vision Ears: deny: decreased hearing, tinnitus Ears, nose, mouth and throat: Denies dysphagia - Breasts bilateral: as per HPI - Cardiovascular Denies chest pain, Denies shortness of breath - Respiratory Denies cough - Gastrointestinal Reports as per HPI - Genitourinary Genitourinary: Denies dysuria, Denies hematuria Menstruation: Reports post hysterectomy - Musculoskeletal Reports as per HPI - Integumentary Denies rash, Denies unusual bruising - Neurological Denies headaches, Denies syncope - Psychiatric Reports as per HPI - Endocrine Reports as per HPI - Hematologic/Lymphatic Reports as per HPI - Allergic/Immunologic Reports seasonal allergies Past Medical History Past Medical History: No Reported History Additional Past Medical History / Comment(s): sjogrens syndrome History of Any Multi-Drug Resistant Organisms: None Reported Past Surgical History: Appendectomy, Breast Surgery, Hysterectomy Additional Past Surgical History / Comment(s): bilateral breast fibrotic cysts. Past Anesthesia/Blood Transfusion Reactions: No Reported Reaction Past Psychological History: No Psychological Hx Reported Smoking Status: Never smoker Past Alcohol Use History: None Reported Past Drug Use History: None Reported Medications and Allergies Home Medications Medication Instructions Recorded Confirmed Type Hydroxychloroquine Sulfate 200 mg PO BID 08/20/22 07/15/23 History Pilocarpine [Salagen] 5 mg PO DAILY 08/20/22 07/15/23 History valACYclovir HCL [Valtrex] 500 mg PO DAILY 08/20/22 07/15/23 History L.acidoph,Paracasei, B.lactis 1 each PO DAILY 07/15/23 07/15/23 History [Probiotic] Allergies Allergy/AdvReac Type Severity Reaction Status Date / Time codeine Allergy Severe Rapid Verified 07/15/23 14:35 Heart Rate Objective - Vital Signs Vital signs: Vital Signs Temp 98.4 F 01/20/24 14:31 Pulse 81 01/20/24 14:31 Resp 17 01/20/24 14:31 BP 150/81 01/20/24 14:31 Pulse Ox 97 01/20/24 14:31 FiO2 Intake & Output 01/19/24 01/20/24 01/20/24 18:59 06:59 18:59 Weight 87.997 kg - Constitutional General appearance: Present: cooperative - EENT Eyes: Present: EOMI ENT: Present: hearing grossly normal - Neck Neck: Present: normal ROM - Respiratory Respiratory: bilateral: CTA - Cardiovascular Rhythm: regular Heart sounds: normal: S1, S2 - Integumentary Integumentary: Present: normal turgor - Musculoskeletal Musculoskeletal: Present: gait normal - Psychiatric Psychiatric: Present: A&O x's 3, appropriate affect, intact judgment & insight - Additional findings Additional findings: Breast Exam: BRA: 42D Inspection: Bilateral grade 2 ptosis Palpation: Right breast: multi positional exam fibrocystic changes Right axilla: No adenopathy of concern Left breast: Well-healed scar from prior surgery, multi positional exam no dominant masses or nodules of concern, tenderness upper outer quadrant, no hematoma or infection at the site Left axilla: No adenopathy of concern Assessment and Plan Assessment: Impression: Family history of breast cancer Increased risk breast cancer Alexandra 5-year model risk 3.4% NCI lifetime risk 23.8; we have discussed chemoprophylaxis and at this time the patient has declined Ultrasound core biopsy right breast question if this was concordant with the area of concern on mammogram of the right breast Fibrocystic breast changes Patient's lifetime risk exceeds 20% and she should be a good candidate for breast MRI Stereo biopsy right breast atypical ductal hyperplasia Plan: Genetic testing (-) We discussed chemoprophylaxis secondary to her Alexandra 5-year model risk of 3.4% and at this time she would like to hold off on that High lifetime risk of breast cancer 23.8% recommend alternating MRI/mammogram every 6 months Right breast needle localization of the Top-Hat clip/area of atypical ductal hyperplasia, right breast lumpectomy, right breast oncoplastic tissue transfer arm abduction test passed pre-op education given Procedure discussed with the patient. Risk include but are not limited to bleeding, infection, reaction to the anesthetic. If the lesion were stated as possible additional surgery would be needed. Also it is possible that the needle could move in the area not be adequately sampled and more tissue acquisition may be necessary. The patient understands and wishes to proceed. CC: Dr. Simon
== END ==
LOC: WWCWWP 14:20
PROVIDERS: ATTEND Surgery
DX: R92.8 Other abnormal and inconclusive findings on diagnostic imaging of breast (principal); N60.11 Diffuse cystic mastopathy of right breast; N60.91 Unspecified benign mammary dysplasia of right breast; Z80.3 Family history of malignant neoplasm of breast; Z88.5 Allergy status to narcotic agent

== ENCOUNTER 2024-01-31 11:21 | Day surgery (SDC) | payer BC ==
--- NOTE | 2024-01-26 16:02 | P.PN ---
Subjective Progress Note Date: 01/26/24 Principal diagnosis: atypical ductal hyperplasia right breast Principal diagnosis: atypical ductal hyperlasia abnormal right breast mammogram Requesting physician: Jeffery Simon History of present illness: Mia is a 52-year-old female seen in consultation for Dr. Simon on 07-29-23 regarding a radiographic abnormality in the right breast. She underwent a bilateral screening mammogram on 07-13-2023. Nothing of concern was seen in the left breast. This revealed a nodular area of density in the central lateral right breast for which spot compression views were recommended. A d iagnostic right breast mammogram as well as a right breast ultrasound were performed on 07-15-2023. These revealed at the 2 o'clock position 2 cm from the nipple measuring up to 5 mm hypoechoic lesion. Biopsy of this lesion was recommended. The mammogram revealed a focal asymmetry 7 cm from the nipple measuring 6 mm at a middle depth. An ultrasound-guided core biopsy was performed on 07-20-2023. The results were benign breast tissue with fibrocystic changes including stromal fibrosis and focal scar with histiocytes. Rare microcalcifications were identified. This was felt to be benign. The concern however was that the clip after ultrasound biopsy was not at the site of the mammographic finding. Therefore 3-month follow-up right breast mammogram was recommended. The patient did not feel any new lumps masses or nodules of concern in either breast. She was not complaining of any skin changes or nipple discharge from either breast. She had not had any recent trauma or infection in the breast. The patient had had a left breast open biopsy in approximately 2006. She has had multiple bilateral cyst aspirations in the past. She underwent a right breast mammogram on 12-02-23 which showed a subtle distortion in this area. This was personally reviewed with the radiologist and consideration of s stero biopsy was discussed, but it was felt this would be hard to localize. An ultrasound of this site was done on 12-07-23. This was felt to be (-) but an MRI was recommended. The patient does not feel any new lumps masses or nodules for which she has any concern. Genetic testing August 31, (-) stero biopsy of the right breast on 12-30-23 atypical ductal hyperplasia; the radiographs were personally reviewed with the radiologist Dr. Shogren. The clip marking this area is a Top-Hat clip and appears to be in the correct location. The recommendation is to take at least 1 cm of tissue around the tip of the clip however. Alexandra Risk: 5 year: 3.4% lifetime risk: 23.8 % Caffiene: none nicotine: none chocolate: none BCP: used for about 25 years started at 10, had a hysterectomy at 25 fiborid took one ovary hormones: none Family History: mother: breast cancer; in her 30's from heart disease maternal grandmother: breast cancer in her 40's maternal cousin: breast cancer with mets; dx in her 50's maternal aunt: leukemia maternal cousins: spider cancer; cancer of bone maternal cousin: larynx cancer Hormonal History: menarche: 9 M1, age at first live : 16, breast fed: no hysterectomy at 25, left one ovary hormones: none Surgical history: Left breast biopsy Hysterectomy 1 ovary removed Appendectomy left wrist fracture Medical history: sograns syndrome autoimmune GERD Social HIstory: nicotine: none alcohol: none drugs: none Review of Systems - Constitutional Denies fever, Denies weight loss - EENT Eyes: denies blurred vision Ears: deny: decreased hearing, tinnitus Ears, nose, mouth and throat: Denies dysphagia - Breasts bilateral: as per HPI - Cardiovascular Denies chest pain, Denies shortness of breath - Respiratory Denies cough - Gastrointestinal Reports as per HPI - Genitourinary Genitourinary: Denies dysuria, Denies hematuria Menstruation: Reports post hysterectomy - Musculoskeletal Reports as per HPI - Integumentary Denies rash, Denies unusual bruising - Neurological Denies headaches, Denies syncope - Psychiatric Reports as per HPI - Endocrine Reports as per HPI - Hematologic/Lymphatic Reports as per HPI - Allergic/Immunologic Reports seasonal allergies Past Medical History Past Medical History: No Reported History Additional Past Medical History / Comment(s): sjogrens syndrome History of Any Multi-Drug Resistant Organisms: None Reported Past Surgical History: Appendectomy, Breast Surgery, Hysterectomy Additional Past Surgical History / Comment(s): bilateral breast fibrotic cysts. Past Anesthesia/Blood Transfusion Reactions: No Reported Reaction Past Psychological History: No Psychological Hx Reported Smoking Status: Never smoker Past Alcohol Use History: None Reported Past Drug Use History: None Reported Medications and Allergies Home Medications Medication Instructions Recorded Confirmed Type Hydroxychloroquine Sulfate 200 mg PO BID 08/20/22 07/15/23 History Pilocarpine [Salagen] 5 mg PO DAILY 08/20/22 07/15/23 History valACYclovir HCL [Valtrex] 500 mg PO DAILY 08/20/22 07/15/23 History L.acidoph,Paracasei, B.lactis 1 each PO DAILY 07/15/23 07/15/23 History [Probiotic] Allergies Allergy/AdvReac Type Severity Reaction Status Date / Time codeine Allergy Severe Rapid Verified 07/15/23 14:35 Heart Rate Objective - Vital Signs Vital signs: Intake & Output 01/25/24 01/26/24 01/26/24 18:59 06:59 18:59 Weight 89.811 kg - Constitutional General appearance: Present: cooperative - EENT Eyes: Present: EOMI ENT: Present: hearing grossly normal - Neck Neck: Present: normal ROM - Respiratory Respiratory: bilateral: CTA - Cardiovascular Rhythm: regular Heart sounds: normal: S1, S2 - Integumentary Integumentary: Present: normal turgor - Musculoskeletal Musculoskeletal: Present: gait normal - Psychiatric Psychiatric: Present: A&O x's 3, appropriate affect, intact judgment & insight - Additional findings Additional findings: Breast Exam: BRA: 42D Inspection: Bilateral grade 2 ptosis Palpation: Right breast: multi positional exam fibrocystic changes Right axilla: No adenopathy of concern Left breast: Well-healed scar from prior surgery, multi positional exam no dominant masses or nodules of concern, tenderness upper outer quadrant, no hematoma or infection at the site Left axilla: No adenopathy of concern Assessment and Plan Assessment: Impression: Family history of breast cancer Increased risk breast cancer Alexandra 5-year model risk 3.4% NCI lifetime risk 23.8; we have discussed chemoprophylaxis and at this time the patient has declined Ultrasound core biopsy right breast question if this was concordant with the area of concern on mammogram of the right breast Fibrocystic breast changes Patient's lifetime risk exceeds 20% and she should be a good candidate for breast MRI Stereo biopsy right breast atypical ductal hyperplasia Plan: Genetic testing (-) We discussed chemoprophylaxis secondary to her Alexandra 5-year model risk of 3.4% and at this time she would like to hold off on that High lifetime risk of breast cancer 23.8% recommend alternating MRI/mammogram every 6 months Right breast needle localization of the Top-Hat clip/area of atypical ductal hyperplasia, right breast lumpectomy, right breast oncoplastic tissue transfer arm abduction test passed pre-op education given Procedure discussed with the patient. Risk include but are not limited to bleeding, infection, reaction to the anesthetic. If the lesion were stated as possible additional surgery would be needed. Also it is possible that the needle could move in the area not be adequately sampled and more tissue acquisition may be necessary. The patient understands and wishes to proceed. CC: Dr. Simon
[~2024-01-31 11:21] MED LIST changes: -ALPRAZolam 0.25 MG TAB PO PRN; -ALPRAZolam 0.5 MG TAB PO PRN; +HYDROmorphone 0.5 MG/0.5 ML SYRINGE IVP PRN
[2024-01-31 12:32] LABS: Glucose,Whole Blood 88 mg/dL (70-110)
[2024-01-31] MEDS: LACTATED RINGERS 1,000 ML IV SCH (12:33)
[2024-01-31] MEDS: IV FLUID CONTINUATION 1,000 ML IV ONE (12:36)
[2024-01-31] MEDS: ONDANSETRON 4 MG/2 ML VIAL IVP ONE (12:40)
[2024-01-31] MEDS: ACETAMINOPHEN TAB 500 MG TAB PO PRN (12:40)
[2024-01-31] MEDS: DEXAMETHASONE SOD PHOSPHATE 4 MG/ML 1 ML VIAL IV ONE (12:40)
[2024-01-31] MEDS: ALPRAZolam 0.5 MG TAB PO STA (12:51)
[2024-01-31] MEDS: FAMOTIDINE 20 MG/2 ML VIAL IV STA (12:53)
[2024-01-31] MEDS: LIDOCAINE 1% INJ 10MG/ML (20 ML MDV) SQ ONE ×2 (13:27→16:03)
[2024-01-31] MEDS: HEPARIN SODIUM,PORCINE 5,000 UNIT/ML 1 ML VIAL SQ PRN (13:55)
[2024-01-31] MEDS ORDERED: PROPOFOL 10 MG/ML 20 ML VIAL IV ONE (15:50)
[2024-01-31] MEDS ORDERED: LIDOCAINE 1% INJ 10MG/ML (20 ML MDV) ONE (15:50)
[2024-01-31] MEDS ORDERED: MIDAZOLAM 2 MG/2 ML VIAL ONE (15:50)
[2024-01-31] MEDS ORDERED: fentaNYL (PF) 50 MCG/ML 2 ML AMP ONE (15:50)
--- NOTE | 2024-01-31 16:42 | P.BCAON ---
Date of Procedure: 01/31/24 Preoperative Diagnosis: Atypical ductal hyperplasia right breast Postoperative Diagnosis: Same Procedure(s) Performed: Needle localization right breast lumpectomy with oncoplastic tissue transfer 25 cm Anesthesia: JOSEA Surgeon: Elena Gant Estimated Blood Loss (ml): 15 IV fluids (ml): 700 Pathology: other (Breast tissue/radiograph of specimen reveals clip of concern) Condition: stable Disposition: same day Indications for Procedure: Core biopsy positive for atypical ductal hyperplasia right breast at Top-Hat clip Operative Findings: Dense breast tissue Description of Procedure: Following needle localization of the area of concern the patient was brought to the operative suite. Following induction of anesthesia the right breast was prepped and draped in a sterile fashion. An incision was made and carried down to the hook of the needle. Surrounding tissue was excised. Radiograph of the specimen revealed the lesion to be Top-Hat clip to be in the specimen. Size of the specimen was approximately 5 cm x 3 cm. The cavity was well irrigated. Surgicel in powder form was placed. Titanium clips were placed. Radiograph of the specimen revealed the area of concern had been removed as well as the clip of concern. An inferior pedicle 5 cm x 2 cm was developed. This was brought into the area of the defect which was 15 cm. Total oncoplastic tissue transfer 25 cm. The pillar was secured using 3-0 Vicryl suture. 3-0 Vicryl subcutaneous suture was placed. 4-0 Monocryl was placed. The patient tolerated the procedure in stable condition. All instrument and sponge counts were correct at the end of the case. 10 cc of 1% lidocaine was injected into the incision. Surgical glue was placed.
[2024-01-31 17:03] VITALS: TEMP 97.1
[2024-01-31 17:19] VITALS: RESP 16
[2024-01-31 17:46] LABS: Glucose,Whole Blood 99 mg/dL (70-110)
[2024-01-31 18:34] VITALS: BP 129/80; PULSE 74
--- NOTE | 2024-02-01 08:15 | MM ---
Risk Values: Alexandra 5 year model risk: 6.7%. NCI Lifetime model risk: 40.1%. Electronically signed and approved by: Christian Dyson M.D. Radiologis
--- NOTE | 2024-02-13 13:43 | MM ---
Risk Values: Alexandra 5 year model risk: 6.7%. NCI Lifetime model risk: 40.1%. Prior Study Comparison: 07/06/2022 Bilateral MG screening mammo w CAD, [facility]. 07/13/2023 Bilateral MG screening mammo w CAD, [facility]. 07/15/2023 Right MG 3D work up w/cad RT, [facility]. 07/20/2023 Right MG diagnostic mammo RT wo CAD, [facility]. 12/02/2023 Right MG 3D diag mammo w/cad RT, [facility]. Pathology Description: Location: anterior, central. Approach: CC FA Needle Type: 7 cm K[place] Informed consent was obtained and all the patient's questions were answered. The clip in question was localized mammographically. The standard sterile technique was utilized, as well as appropriate local anesthesia with 1% Lidocaine.Localization needle followed by placement of a guidewire was performed under mammographic guidance. Verification images demonstrate appropriate deployment of the guidewire. The patient tolerated the procedure well and left the department in stable condition. Specimen radiograph demonstrates the clip in question to reside within the specimen. IMPRESSION: Successful needle localization and open biopsy right breast with pathology results pending. [facility], , 02/01/2024 8:12 AM. Pathology Results: Result: High risk, Flat epithelial atypia. Pathology and radiology were reviewed. Findings are concordant. RIGHT BREAST TISSUE, EXCISION: Flat epithelial atypia/atypical ductal hyperplasia (FEA/ADH) with focal microcalcification. All margins benign. Proliferative fibrocystic change with columnar cell change, usual ductal hyperplasia and sclerosing adenosis. Biopsy site change present. Small benign hemangioma. Overall Assessment: High risk Management: Diagnostic Mammogram of the right breast in 6 months. Electronically signed and approved by: Christian Dyson M.D. Radiologis
== END 2024-01-31 18:55 | disposition home or self-care (01) ==
LOC: OR 11:21
PROVIDERS: ATTEND Surgery
DX: N60.81 Other benign mammary dysplasias of right breast (principal); N60.11 Diffuse cystic mastopathy of right breast; N60.21 Fibroadenosis of right breast; D18.09 Hemangioma of other sites; K21.9 Gastro-esophageal reflux disease without esophagitis; M35.00 Sjogren syndrome, unspecified; M19.90 Unspecified osteoarthritis, unspecified site; Z80.3 Family history of malignant neoplasm of breast; Z90.710 Acquired absence of both cervix and uterus; Z90.49 Acquired absence of other specified parts of digestive tract; Z98.890 Other specified postprocedural states; Z79.899 Other long term (current) drug therapy; Z88.5 Allergy status to narcotic agent
CPT/HCPCS: 19301; 88307; 76098; 19281; C1819; J2250; J1644; J1100; J0690; J2405; J2003; J3010; J3490; J2704

== ENCOUNTER → 2024-02-17 | Outpatient (CLI) | payer BC ==
[2024-02-17 11:42] VITALS: BP 122/74; PULSE 97; RESP 16; TEMP 98.4
--- NOTE | 2024-02-17 11:49 | P.BCPO ---
Progress Note - Text Progress Note Date: 02/17/24 Mia is a 53 year old status post right breast biopsy on 01-31-24. Pathology showed flat epithelial atypia/atypical ductal hyperplasia. She is doing well postoperatively. Examination: Lungs: Clear Heart: Regular rate and rhythm Incision: Clean and dry Impression: Patient doing well postoperative Patient is increased risk secondary to atypical ductal hyperplasia of the right breast Plan: Right breast mammogram in 6 months with examination at that time Follow-up medical oncology to discuss chemoprophylaxis Patient will follow-up sooner any questions or concerns Post Op Education - Post Op Education Post Op Education Provided Date: 02/17/24 - Functional Assessment Performed?: Yes (arm abduction passed) Path Report - Was patient given path report? Path Report Date Given: 02/17/24
== END ==
LOC: WWCWWP 11:34
PROVIDERS: ATTEND Surgery
DX: N60.81 Other benign mammary dysplasias of right breast (principal); Z88.5 Allergy status to narcotic agent

== ENCOUNTER → 2024-06-06 | Outpatient (CLI) | payer BC ==
[2024-06-06 10:37] LABS: Basophils # (A) 0.02 X 10*3/uL (0.00-0.10); Basophils % (A) 0.7 %; Eosinophils # (A) 0.06 X 10*3/uL (0.04-0.35); HCT 39.1 % (37.2-46.3); HGB 12.6 g/dL (12.0-15.0); Lymphocytes # (A) 0.77 X 10*3/uL (0.90-5.00); Lymphocytes % (A) 26.2 %; MCH 28.3 pg (27.0-32.0); MCHC 32.2 g/dL (32.0-37.0); MCV 87.7 FL (80.0-97.0); Mean Platelet Volume 9.5 FL (9.5-12.2); Monocytes % (A) 10.2 %; NRBC Per 100 WBC 0 X 10*3/uL (0.00-0.01); Neutrophils # (A) 1.77 X 10*3/uL (1.80-7.70); Neutrophils % (A) 60.2 %; Platelet Count 238 X 10*3/uL (140-440); RBC 4.46 X 10*6/uL (4.10-5.20); RDW 13.1 % (11.5-14.5); WBC 2.94 X 10*3/uL (4.50-10.00)
[2024-06-06 10:50] LABS: ALT 17 U/L (8-44); AST 22 U/L (13-35); Albumin 4.1 g/dL (3.8-4.9); Albumin/Globulin Ratio 1.64 Ratio (1.60-3.17); Alkaline Phosphatase 68 U/L (41-126); BUN/Creat Ratio 15.22 Ratio (12.00-20.00); Blood Urea Nitrogen 13.7 mg/dL (9.0-27.0); Calcium 9.1 mg/dL (8.7-10.3); Carbon Dioxide 27.6 mmol/L (21.6-31.8); Chloride 106 mmol/L (96-109); Chol/HDL Ratio 4.14 Ratio; Estradiol <20.0 pg/mL; Globulin 2.5 g/dL (1.6-3.3); Glucose 95 mg/dL (70-110); LDL Cholesterol,Calculated 108.7 mg/dL (0.0-131.0); Potassium 4.4 mmol/L (3.5-5.5); Sodium 142 mmol/L (135-145); T4, Free (Free Thyroxine) 0.98 ng/dL (0.80-1.80); Total Bilirubin 0.4 mg/dL (0.3-1.2); Total Protein 6.6 g/dL (6.2-8.2); Uric Acid 4.8 mg/dL (2.9-7.7); VLDL Calculation 14.94 mg/dL (5.00-40.00)
== END | disposition home or self-care (01) ==
LOC: LABWHC1 07:46
PROVIDERS: ATTEND Family Medicine
DX: Z00.00 Encounter for general adult medical examination without abnormal findings (principal); M35.00 Sjogren syndrome, unspecified; M25.50 Pain in unspecified joint; N95.1 Menopausal and female climacteric states
CPT/HCPCS: 36415; 80053; 80061; 82670; 84144; 84403; 84439; 84443; 84550; 85025

== ENCOUNTER → 2024-07-31 | Outpatient (CLI) | payer BC ==
--- NOTE | 2024-07-31 10:35 | MM ---
Reason for Exam: Follow-up at short interval from prior study. Last screening mammogram was performed 12 month(s) ago. Patient History: Menarche at age 10. First Full-Term at age 16. Left ovary removed at age 25. Hysterectomy at age 25. Postmenopausal. Previous Atypical Ductal Hyperplasia at age 53. Estrogen for 6 months. 01/31/2024, Lumpectomy on the Right side. 01/31/2024, High risk MG pre op needle loc RT on the right side. 12/30/2023, High risk MG stereo VAD BX RT on the right side. 07/20/2023, Benign US biopsy breast VAD RT on the right side. 05/2007, Benign Excisional Biopsy on the left side. 12/11/2013, Benign Cyst Aspiration on the right side. 04/19/2013, Benign Cyst Aspiration on the right side. 07/02/2008, Benign Cyst Aspiration on the left side. Maternal grandmother had breast cancer. Maternal aunt had breast cancer at or over age 50. Mother had breast cancer, age 40. Risk Values: Alexandra 5 year model risk: 6.7%. NCI Lifetime model risk: 40.1%. Prior Study Comparison: 07/15/2023 Right MG 3D work up w/cad RT, [facility]. 07/20/2023 Right MG diagnostic mammo RT wo CAD, [facility]. 12/02/2023 Right MG 3D diag mammo w/cad RT, [facility]. Tissue Density: Right: The breasts are heterogeneously dense, which may obscure small masses. Findings: Analyzed By CAD. Right breast biopsy clip. Right breast surgical clips. No new suspicious masses, calcifications or distortions. Overall Assessment: Benign, BI-RAD 2 Management: Screening Mammogram of both breasts in 1 year. Results were given to the patient verbally at the time of exam. Patient should continue monthly self-breast exams. A clinical breast exam by your physician is recommended on an annual basis. This exam should not preclude additional follow-up of suspicious palpable abnormalities. Note on Alexandra scores and lifetime risk: 1. A Alexandra score greater than 3% is considered moderate risk. If this is the case, consider specialist referral to assess eligibility for a risk reducing agent. 2. If overall lifetime risk for the development of breast cancer is 20% or higher, the patient may qualify for future screening with alternating mammogram and breast MRI. [facility], , 07/31/2024 10:09 AM. Electronically signed and approved by: Jani Lux DO
== END | disposition home or self-care (01) ==
LOC: RADMAMWWP 09:37
PROVIDERS: ATTEND Surgery
DX: R92.8 Other abnormal and inconclusive findings on diagnostic imaging of breast (principal); R92.331 Mammographic heterogeneous density, right breast; Z78.0 Asymptomatic menopausal state; Z80.3 Family history of malignant neoplasm of breast
CPT/HCPCS: 77061; 77065

== ENCOUNTER → 2024-09-19 | Outpatient (CLI) | payer BC ==
--- NOTE | 2024-09-21 11:10 | BMR ---
EXAM DATE: 09/19/2024 EXAM DESCRIPTION: MRI-Breast Bilat (W/WO Contrast) INDICATION: Lumps in the breast. History of benign left breast biopsy in 2006. History of biopsy-proven high-risk lesion in the right breast in 2023 post excision biopsy on 01/31/2024. Restaging. COMPARISON: Prior mammogram and ultrasound dated 12/02/2023 and 12/07/2023 CONTRAST: 6.2 cc Gadavist contrast material. TECHNIQUE: Multi sequence multiplanar MR imaging of the breasts was obtained. Subsequently, after the uneventful intravenous administration of Gadavist contrast material, 6 dynamic sequences were then obtained. Post processing was performed utilizing a [employer] CAD workstation. FINDINGS: The breasts are composed of heterogeneous fibroglandular tissue. There is mild background parenchymal enhancement identified. No axillary or internal mammary lymphadenopathy. Prominent lymph nodes with benign morphology are present in the bilateral axillary regions likely reactive. No adenopathy in the visualized mediastinum. The bone marrow signal intensity is unremarkable. No focal skin thickening or nipple retraction. T2 weighted images demonstrated several scattered T2 bright lesions in both breasts suggestive of fibrocystic changes. Mild increase T2 signal intensity in the right central breast at 12 o'clock position likely postsurgical in etiology. There is a note is made of a 1.4 cm partially visualized T2 bright lesion in the lateral segment of left hepatic lobe (401 image 5). Post contrast images demonstrated no abnormal enhancement in either breast to suggest malignancy including at right 12 o'clock position mid to anterior depth at the prior excision biopsy site. There is no abnormal signal or enhancement in the chest wall or subcutaneous tissue. IMPRESSION: 1. No MR evidence of malignancy in either breast including right excision biopsy site. 2. No axillary or internal mammary lymphadenopathy. Prominent lymph nodes in the bilateral axillary regions likely reactive in etiology. Final assessment: BI-RADS category 2: Benign findings. MTDD
== END | disposition home or self-care (01) ==
LOC: RADMRIMAIN 19:45
PROVIDERS: ATTEND Surgery
DX: N63.10 Unspecified lump in the right breast, unspecified quadrant (principal); N63.20 Unspecified lump in the left breast, unspecified quadrant; Z15.09 Genetic susceptibility to other malignant neoplasm
CPT/HCPCS: 77049; A9585